=== PATIENT | female | born 1970 ===

== ENCOUNTER 2016-10-28 04:58 | Observation (INO) | payer OTHER ==
--- NOTE | 2016-10-28 05:27 | ED PDOC ---
HPI: Abdomen Time Seen by Provider: 10/28/16 05:13 Chief Complaint (Nursing): Abdominal Pain Chief Complaint (Provider): Abdominal pain History Per: Patient Additional Complaint(s): 46 yo female, PMH of HTN, presents to ED with c/o fever, epigastric abdominal pain, nausea and diarrhea x 3 days. Pt reports fever was 104 at home. Currently 98.1 without the use of antipyretics. Pt denies nay episodes of vomiting. Past Medical History Reviewed: Nursing Documentation, Vital Signs Vital Signs: Last Vital Signs Temp 98.1 F 10/28/16 05:14 Pulse 100 H 10/28/16 05:14 Resp 18 10/28/16 05:14 BP 124/67 10/28/16 05:14 Pulse Ox 98 10/28/16 05:14 - Medical History PMH: HTN - Family History Family History: States: No Known Family Hx - Allergies Allergies/Adverse Reactions: Allergies Allergy/AdvReac Type Severity Reaction Status Date / Time No Known Allergies Allergy Verified 10/28/16 05:14 Review of Systems ROS Statement: Except As Marked, All Systems Reviewed And Found Negative Gastrointestinal: Positive for: Nausea, Abdominal Pain, Diarrhea Physical Exam - Reviewed Nursing Documentation Reviewed: Yes Vital Signs Reviewed: Yes - Physical Exam Appears: Positive for: Well, Non-toxic, No Acute Distress Head Exam: Positive for: ATRAUMATIC, NORMAL INSPECTION, NORMOCEPHALIC Skin: Positive for: Normal Color, Warm, DRY Eye Exam: Positive for: EOMI, Normal appearance, PERRL ENT: Positive for: Normal ENT Inspection Neck: Positive for: Normal, Painless ROM Cardiovascular/Chest: Positive for: Regular Rate, Rhythm Respiratory: Positive for: CNT, Normal Breath Sounds Gastrointestinal/Abdominal: Positive for: Bowel Sounds, Soft, Tenderness ( Epigastric) Back: Positive for: Normal Inspection Extremity: Positive for: Normal ROM Neurologic/Psych: Positive for: Alert, Oriented - ECG O2 Sat by Pulse Oximetry: 98 Medical Decision Making Medical Decision Making: IV access established and treatment initiated with IVF, Pepcid Diagnostics ordered Case endorsed to ED MD, Dr. Luna, at 0600 pending diagnostic review and re- eval Disposition - Clinical Impression Clinical Impression: Gastritis, Diarrhea - Patient ED Disposition Is Patient to be Admitted: Transfer of Care - Disposition Disposition: Transfer of Care (Dr. Luna) Disposition Time: 06:00 Condition: STABLE - POA Present On Arrival: None
[2016-10-28 06:05] LABS: BASO % 0.2 % (0.0-2.0); EOS % 0.1 % (0.0-4.0); HEMOGLOBIN 12.1 g/dL (12.0-16.0); LYMPH # 1.1 K/uL (1.0-4.3); LYMPH % 6.9 % (20.0-40.0); MEAN CORPUSCULAR HEMOGLOBIN 28.9 pg (27.0-31.0); MEAN CORPUSCULAR HGB CONC 34.4 g/dL (33.0-37.0); MONO # 1.1 K/uL (0.0-0.8); MONO % 6.9 % (0.0-10.0); NEUT # 13.5 K/uL (1.8-7.0); NEUT % 85.9 % (50.0-75.0); PLATELET COUNT 297 K/uL (130-400); RBC 4.19 Mil/uL (3.80-5.20); RED CELL DISTRIBUTION WIDTH 13.8 % (11.5-14.5); WHITE BLOOD COUNT 15.8 K/uL (4.8-10.8)
[2016-10-28] MEDS ORDERED: Iohexol 240 (50 ml) PO ONE (06:12)
--- NOTE | 2016-10-28 06:19 | ED PDOC ---
- Laboratory Results Result Diagrams: 10/28/16 11:55 10/28/16 11:55 - ECG O2 Sat by Pulse Oximetry: 98 (RA) Pulse Ox Interpretation: Normal Medical Decision Making Medical Decision Making: Time: 06:00 --Patient was transferred to [place] by Zee Messina PA-C. --Labs reviewed: elevated WBC of 15.8. CT ABD/Pelvis with IV and PO contrast ordered. Time: 07:00 --Patient signed out to Maldonado Watters III, MD. Scribe Attestation: Documented by Zita Ivy, acting as a scribe for Pablo Luna MD. Provider Scribe Attestation: All medical record entries made by the Scribe were at my direction and personally dictated by me. I have reviewed the chart and agree that the record accurately reflects my personal performance of the history, physical exam, medical decision making, and the department course for this patient. I have also personally directed, reviewed, and agree with the discharge instructions and disposition. Disposition - Clinical Impression Clinical Impression: Diarrhea, Abdominal pain - POA Present On Arrival: None - Disposition Disposition: Transfer of Care Disposition Time: 06:15 Condition: STABLE Patient Signed Over To: Maldonado Watters III
[2016-10-28 06:22] LABS: ALBUMIN 4.3 g/dL (3.5-5.0); ALT/SGPT 40 U/L (9-52); AMYLASE 89 U/L (30-110); AST/SGOT 35 U/L (14-36); BLOOD UREA NITROGEN 29 mg/dl (7-17); CALCIUM 9.8 mg/dL (8.4-10.2); GFR AFRICAN-AMERICAN 29; GFR NON-AFRICAN AMERICAN 24; LIPASE 55 U/L (23-300)
--- NOTE | 2016-10-28 07:12 | ED PDOC ---
- Laboratory Results Result Diagrams: 10/28/16 11:55 10/28/16 11:55 - ECG O2 Sat by Pulse Oximetry: 98 (RA) Pulse Ox Interpretation: Normal Medical Decision Making Medical Decision Making: Time:07:00 --Patient was transferred from Dr. Luna to [place]. --Pending abdomen/pelvis CT, reassessment, and disposition. Time: 09:29 --Abdomen/pelvis CT ordered with PO contrast only Time: 10:48 --Abdomen/pelvis CT FINDINGS: LOWER THORAX: The lung bases are clear. LIVER: The liver is normal in size. No gross lesion or ductal dilatation. GALLBLADDER AND BILE DUCTS: Surgically absent. PANCREAS: The pancreas is normal in size. No gross lesion or ductal dilatation. SPLEEN: Normal in size. ADRENALS: Both adrenal glands are normal in size without discrete nodule. KIDNEYS AND URETERS: Both kidneys are normal in size without nephrolithiasis. No hydronephrosis. No solid mass. VASCULATURE: There are early atherosclerotic aortoiliac calcifications. No aortic aneurysm. BOWEL: The small bowel loops are normal in caliber. There is mild circumferential mural thickening in the terminal ileum. There is moderate circumferential mural thickening in the ascending colon and hepatic flexure with pericolonic inflammatory changes. No evidence of perforation, abscess or drainable fluid collection. APPENDIX: Normal appendix. PERITONEUM: No free fluid. No free air. LYMPH NODES: There are mildly enlarged mesenteric lymph nodes in the right lower quadrant. BLADDER: Grossly normal in appearance. REPRODUCTIVE: The uterus is normal in size however positioned anteriorly and more superiorly in the lower abdomen. There is an apparent 17 mm low-attenuation lesion in the posterior wall of the cervix. BONES: No acute fracture. Within normal limits for the patient's age. OTHER FINDINGS: There is a small sliding hiatal hernia. IMPRESSION: 1. Findings are most compatible with nonspecific infectious/ inflammatory colitis involving the ascending colon and hepatic flexure with back/ileitis. Also noted is reactive mesenteric adenopathy in the right lower quadrant. 2. 17 mm low-density lesion in the posterior wall of the cervix is incompletely characterized on this examination, dedicated pelvic ultrasound is recommended for complete evaluation of the uterus and cervix. Time: 12:53 re-eval --Sodium Chloride 1,000 ml IV 1,000 mls/hr repeat labs performed and kidney function improving. Possible chronic component to labs also given HTN history. She is feeling better. 3pm: re-eval: Denies current pain. Explained all results via Faith barnhart RN. DC home w renal dosed Abx, followup PMD 3-5 days for repeat eval and bloodwork. Referred GI for further testing. Also referred [employer] [facility] for nonemergent US of pelvis/ cervix. Scribe Attestation: Documented by Nenita Rod, acting as a scribe for Maldonado Watters MD. Provider Scribe Attestation: All medical record entries made by the Scribe were at my direction and personally dictated by me. I have reviewed the chart and agree that the record accurately reflects my personal performance of the history, physical exam, medical decision making, and the department course for this patient. I have also personally directed, reviewed, and agree with the discharge instructions and disposition. Disposition Counseled Patient/Family Regarding: Studies Performed, Diagnosis, Need For Followup, Rx Given - Clinical Impression Clinical Impression: Diarrhea, Abdominal pain - POA Present On Arrival: None - Disposition Disposition: Routine/Home Disposition Time: 15:20 Condition: STABLE
--- NOTE | 2016-10-28 07:57 | CARD ---
APPROVED REPORT EKG Measurement Heart [id number] <Conclusion> Normal sinus rhythm Left bundle branch block Abnormal ECG
[2016-10-28] MEDS ORDERED: Sodium Chloride 0.9% 1,000 ML IV STA ×2 (09:30→12:53)
--- NOTE | 2016-10-28 10:49 | CT ---
PROCEDURE: CT Abdomen and Pelvis with contrast HISTORY: Abdominal pain COMPARISON: None. TECHNIQUE: CT scan of the abdomen and pelvis was performed after administration of oral contrast. Intravenous contrast was not administered. Coronal and sagittal reformatted images were obtained. Radiation dose: Total exam DLP = 1007.34 mGy-cm. This CT exam was performed using one or more of the following dose reduction techniques: Automated exposure control, adjustment of the mA and/or kV according to patient size, and/or use of iterative reconstruction technique. FINDINGS: LOWER THORAX: The lung bases are clear. LIVER: The liver is normal in size. No gross lesion or ductal dilatation. GALLBLADDER AND BILE DUCTS: Surgically absent. PANCREAS: The pancreas is normal in size. No gross lesion or ductal dilatation. SPLEEN: Normal in size. ADRENALS: Both adrenal glands are normal in size without discrete nodule. KIDNEYS AND URETERS: Both kidneys are normal in size without nephrolithiasis. No hydronephrosis. No solid mass. VASCULATURE: There are early atherosclerotic aortoiliac calcifications. No aortic aneurysm. BOWEL: The small bowel loops are normal in caliber. There is mild circumferential mural thickening in the terminal ileum. There is moderate circumferential mural thickening in the ascending colon and hepatic flexure with pericolonic inflammatory changes. No evidence of perforation, abscess or drainable fluid collection. APPENDIX: Normal appendix. PERITONEUM: No free fluid. No free air. LYMPH NODES: There are mildly enlarged mesenteric lymph nodes in the right lower quadrant. BLADDER: Grossly normal in appearance. REPRODUCTIVE: The uterus is normal in size however positioned anteriorly and more superiorly in the lower abdomen. There is an apparent 17 mm low-attenuation lesion in the posterior wall of the cervix. BONES: No acute fracture. Within normal limits for the patient's age. OTHER FINDINGS: There is a small sliding hiatal hernia. IMPRESSION: 1. Findings are most compatible with nonspecific infectious/ inflammatory colitis involving the ascending colon and hepatic flexure with back/ileitis. Also noted is reactive mesenteric adenopathy in the right lower quadrant. 2. 17 mm low-density lesion in the posterior wall of the cervix is incompletely characterized on this examination, dedicated pelvic ultrasound is recommended for complete evaluation of the uterus and cervix.
[2016-10-28 10:54] LABS: BANDS 4 % (0-2); LYMPHOCYTE 5 % (20-50); MONOCYTE 5 % (0-10); NEUTROPHIL 86 % (42-75); TOTAL CELLS COUNTED 100
[2016-10-28 10:55] LABS: PLATELET ESTIMATE NORMAL (NORMAL)
[2016-10-28 12:06] LABS: BASO % 0.2 % (0.0-2.0); EOS % 0.1 % (0.0-4.0); HEMOGLOBIN 11.9 g/dL (12.0-16.0); LYMPH # 1.2 K/uL (1.0-4.3); LYMPH % 10.5 % (20.0-40.0); MEAN CELL VOLUME 84.1 fl (81.0-99.0); MEAN CORPUSCULAR HEMOGLOBIN 28.6 pg (27.0-31.0); MEAN PLATELET VOLUME 7.7 fl (7.2-11.7); MONO # 0.8 K/uL (0.0-0.8); MONO % 6.7 % (0.0-10.0); NEUT # 9.2 K/uL (1.8-7.0); NEUT % 82.5 % (50.0-75.0); RBC 4.15 Mil/uL (3.80-5.20); WHITE BLOOD COUNT 11.2 K/uL (4.8-10.8)
[2016-10-28 12:20] LABS: CALCIUM 9.5 mg/dL (8.4-10.2)
[2016-10-28 12:24] VITALS: PULSE 78; RESP 20
[2016-10-28 13:50] VITALS: O2SAT 98
[2016-10-28 15:24] VITALS: BP 114/74; TEMP 98.5
== END 2016-10-28 15:29 | disposition home or self-care (01) ==
LOC: H.ER 04:58 → H.EROBSV 06:12
PROVIDERS: ADMIT Emergency Medicine; ATTEND Emergency Medicine
DX: K29.70 Gastritis, unspecified, without bleeding (principal); R10.13 Epigastric pain; I10 Essential (primary) hypertension; K52.9 Noninfective gastroenteritis and colitis, unspecified; R59.9 Enlarged lymph nodes, unspecified